=== PATIENT | male | born 2000 | race Asian ===

== ENCOUNTER 2018-05-11 09:55 | Emergency (ER) | payer OTHER ==
[2018-05-11 10:19] LABS: #Eosinphils 0.1 thou/uL (0.0-0.7); #Lymphocytes 1.1 thou/uL (1.20-3.40); #Monocytes 0.4 thou/uL (0.11-0.59); #Neutrophils 8.3 thou/uL (1.40-6.50); %Basophils 0.2 % (0.0-1.0); %Eosinophils 0.9 % (0.0-10.0); %Lymphocytes 10.8 % (28.0-48.0); %Monocytes 4.4 % (0.0-4.0); %Neutrophils 83.7 % (31.0-61.0); Hemoglobin 15.9 g/dL (14.0-18.0); Mean Corpuscular HGB CONC 33.3 g/dL (32.0-36.0); Mean Corpuscular Hemoglobin 30.8 pg (25.0-35.0); Mean Corpuscular Volume 92.4 fL (78.0-98.0); Mean Platelet Volume 7.9 fL (7.4-10.4); Platelet Count 266 thou/uL (130-400); Red Blood Cell (RBC) Count 5.16 mill/uL (4.00-5.20); White Blood Cell (WBC) Count 9.9 thou/uL (4.8-10.8)
[2018-05-11 10:43] LABS: Bilirubin Negative (Negative); Blood, Urine Trace (Negative); Clarity CLEAR (Clear); Glucose, Urine (Dipstick) Negative (Negative); Leukocyte Negative (Negative); Nitrite Negative (Negative); Protein, Urine (Dipstick) Negative (Neg-Trace); Specific Gravity, Urine 1.018 (1.002-1.036); Urobilinogen 0.2 mg/dL (0.2-1.0); pH, Urine 7.5 (5.0-9.0)
[2018-05-11 10:43] LABS: ALT (SGPT) 16 U/L (8-55); AST (SGOT) 14 U/L (10-45); Alkaline Phosphatase 103 U/L (Less than 750); Anion Gap 11 mmol/L (10-20); BUN (Urea Nitrogen) 14 mg/dL (8.4-21.0); Bilirubin, Total 0.5 mg/dL (0.2-1.2); Calc. Creatinine Clearance 0 mL/min (70-130); Carbon Dioxide 26 mmol/L (22-29); Chloride 103 mmol/L (98-107); Estimated GFR-MDRD Greater than 90; Globulin 3.2 g/dL (2.4-3.5); Glucose 103 mg/dL (70-105); Potassium 4.1 mmol/L (3.5-5.1); Protein, Total 8.2 g/dL (6.0-8.3); Sodium 136 mmol/L (136-145)
[2018-05-11 10:45] LABS: Bacteria/HPF None Seen HPF (None Seen); Hyaline Casts/LPF 0-3 HYALINE CAST LPF (0-3 Hyaline); Pathc Cast-AUWi Flag 0.43 (0-2.49); RBC/HPF 0-3 HPF (0-3); Squamous Epithelial 0-3 HPF (0-3); WBC/HPF 0-3 HPF (0-3)
--- NOTE | 2018-05-11 10:59 | CT ---
CT ABDOMEN AND PELVIS NONCONTRAST: HISTORY: Left flank pain. FINDINGS: There is distention of the left renal calyces and pelvis with a 1.5 cm calculus, lodged at the ureter opelvic junction. There is some stranding around the proximal to mid left ureter. At the level of t he distal ureter, a phlebolith is seen to the outside of the course of the distal ureter. Within a dilated calyx at the inferior pole of the left kidney is a grouping of small calcifications, estimated at 3 separate calcifications, measuring up to 0.5 cm in diameter. The right renal collecting system and ureter are decompressed without stone evident. No stones are v isible within the urinary bladder, that is also decompressed. Lack of contrast decreases the sensitivity of the exam for other abnormalities. IMPRESSION: 1. Partial obstruction at a 1.5 cm left ureteropelvic junction calculus. 2. Additional nonobstructing left renal calculi. POS: [facility]
== END 2018-05-11 11:36 | disposition home or self-care (01) ==
LOC: ERS 09:55
DX: N20.2 Calculus of kidney with calculus of ureter (principal)
CPT/HCPCS: 74176; 80053; 81003; 81015; 85025